=== PATIENT | male | born 1980 | race Caucasian/White ===

== ENCOUNTER 2019-01-30 15:01 | Emergency (ER) | payer OTHER ==
[~2019-01-30] VITALS: Ht 180.3 cm; Wt 76.2 kg
--- OUTSIDE RECORDS SUMMARY | 2019-01-30 15:06 | XMS REPORT | Continuity of Care Document ---
Author Organization Unknown Address Unknown Phone Unavailable Allergies There is no data. Medications There is no data. Problems There is no data. Procedures There is no data. Results There is no data. Encounters ACCT No. Visit Date/Time Discharge Status Pt. Type Provider Facility Loc./Unit Complaint [id number] 01/26/2019 09:40:00 01/26/2019 23:59:59 CLS Outpatient BRENDON PEARSON APRN
--- NOTE | 2019-01-30 15:27 | ED Upper Extremity ---
General Chief Complaint: Upper Extremity Stated Complaint: R FINGER PAIN Nursing Triage Note: PATIENT STATES THAT WHILE AT WORK HE ACCIDENTALLY SMASHED HIS RIGHT 5TH FINGER AGAINST A WALL. Nursing Sepsis Screen: No Definite Risk Source: patient Exam Limitations: no limitations History of Present Illness Date Seen by Provider: Jan 30, 2019 Time Seen by Provider: 15:22 Onset: just prior to arrival Severity: moderate Pain/Injury Location: right 5th finger Modifying Factors: Worse With Movement Allergies and Home Medications Patient Home Medication List Home Medication List Reviewed: Yes Review of Systems Constitutional: see HPI EENTM: see HPI Respiratory: no symptoms reported Cardiovascular: no symptoms reported Genitourinary: no symptoms reported Musculoskeletal: see HPI Skin: no symptoms reported Psychiatric/Neurological: No Symptoms Reported Past Flylcqn-Mrazzu-Icbrnq Hx Patient Social History Recent Foreign Travel: No Contact w/Someone Who Travel: No Recent Infectious Disease Expo: No Physical Exam Vital Signs Vital Signs - First Documented 01/30/19 15:07 Temp 96.7 Pulse 87 Resp 20 B/P (MAP) 128/95 (106) Pulse Ox 97 Capillary Refill : Less Than 3 Seconds Height, Weight, BMI Height: 5'11.00" Weight: 168lbs. 0oz. 76.946881pw; BMI Method:Stated General Appearance: WD/WN, no apparent distress HEENT: PERRL/EOMI, normal ENT inspection Neck: non-tender, full range of motion Respiratory: normal breath sounds, no respiratory distress, no accessory muscle use Shoulder: normal inspection, no evidence of injury Elbow/Forearm: normal inspection, non-tender Wrist: Yes normal inspection, Yes non-tender Hand: Right, limited ROM (keeps distal phalanx right 5th finger in a flexed position. able to flex it but unable to extend it. No obvious lateral or medial or anterior/posterior dislocation) Neurologic/Tendon: normal sensation Neurologic/Psychiatric: alert, normal mood/affect, oriented x 3 Skin: normal color, warm/dry Progress/Results/Core Measures Results/Orders My Orders Orders - FLORINDA MONSALVE APRN Hand, Right, 3 Views (01/30/19 15:20) Vital Signs/I&O 01/30/19 15:07 Temp 96.7 Pulse 87 Resp 20 B/P (MAP) 128/95 (106) Pulse Ox 97 Blood Pressure Mean: 106 Diagnostic Imaging Diagonstic Imaging: Xray Comments NAME: [facility] REC#: [id number] PT STATUS: REG ER : 1980 PHYSICIAN: FLORINDA MONSALVE APRN ADMIT DATE: 01/30/19/ER Draft Date of Exam:01/30/19 HAND, RIGHT, 3 VIEWS INDICATION: Smashed fifth digit. TIME OF EXAM: 03:29 p.m. EXAMINATION: Three views of the right hand were obtained. FINDINGS: The distal radius and ulna appear intact. The carpus is unremarkable. Metacarpals are unremarkable. Phalanges appear to be intact. No fractures are seen. Joint spaces are maintained. IMPRESSION: No acute bony abnormality is detected. Dictated on workstation # [id number] Dict: 01/30/19 1532 Trans: 01/30/19 1535 [facility] [id number] Interpreted by: BARRY CALDERA MD Electronically signed by: Departure Impression Primary Impression: Mallet deformity of right little finger Disposition: 01 HOME, SELF-CARE Condition: Stable Departure-Patient Inst. Decision time for Depature: 15:24 Referrals: NO,LOCAL PHYSICIAN (PCP) Primary Care Physician Patient Instructions: Common Finger Injuries Add. Discharge Instructions: 1. Keep the splint on at all times except during showering. Call an orthopedist of your choosing for follow up. All discharge instructions reviewed with patient and/or family. Voiced understanding. Work/School Note: Work Release Form Date Seen in the Emergency Department: Jan 30, 2019 Return to Work: Jan 31, 2019 Other Restrictions Listed Below: right finger in splint at all times until released FLORINDA MONSALVE APRN Jan 30, 2019 15:27
--- NOTE | 2019-01-30 15:35 | Diagnostic Imaging Report ---
INDICATION: Smashed fifth digit. TIME OF EXAM: 03:29 p.m. EXAMINATION: Three views of the right hand were obtained. FINDINGS: The distal radius and ulna appear intact. The carpus is unremarkable. Metacarpals are unremarkable. Phalanges appear to be intact. No fractures are seen. Joint spaces are maintained. IMPRESSION: No acute bony abnormality is detected. Dictated by: Dictated on workstation # [id number]
[2019-01-30 15:46] VITALS: BP 128/95
== END 2019-01-30 15:54 | disposition home or self-care (01) ==
LOC: EDUNIT# 15:01 → ER 15:02
DX: M20.011 Mallet finger of right finger(s) (principal); W22.8XXA Striking against or struck by other objects, initial encounter; Y92.59 Other trade areas as the place of occurrence of the external cause
CPT/HCPCS: 73130

== ENCOUNTER → 2019-02-08 | Outpatient (CLI) | payer OTHER | LOC: ORTHO 09:33 | PROVIDERS: ATTEND Orthopaedic Surgery | DX: M20.011 Mallet finger of right finger(s) (principal); W22.8XXA Striking against or struck by other objects, initial encounter | CPT/HCPCS: 99203 ==

== ENCOUNTER → 2019-02-22 | Outpatient (CLI) | payer OTHER | LOC: ORTHO 09:23 | PROVIDERS: ATTEND Orthopaedic Surgery | DX: M20.011 Mallet finger of right finger(s) (principal); W22.8XXA Striking against or struck by other objects, initial encounter | CPT/HCPCS: 99213 ==

== ENCOUNTER → 2019-03-26 | Outpatient (CLI) | payer OTHER | LOC: ORTHO 09:42 | PROVIDERS: ATTEND Orthopaedic Surgery | DX: M20.011 Mallet finger of right finger(s) (principal); W22.8XXA Striking against or struck by other objects, initial encounter | CPT/HCPCS: 99213 ==